=== PATIENT | male | born 1940 | race Caucasian/White ===

== ENCOUNTER 2016-04-22 05:16 | Inpatient (IN) | payer OTHER, MEDICARE ==
[~2016-04-22] VITALS: Ht 185.4 cm; Wt 106.1 kg
[2016-04-22] VITALS (10 sets, daily range): BP systolic 95–124; BP diastolic 59–67; PULSE 51–62; RESP 16–20; TEMP 98.1–98.6; O2SAT 93–98
[~2016-04-22 05:16] MED LIST: ASPI325T PO; ATOR80TA41 PO; LEXA20TA PO; MELO15TA2 PO; METO50CR PO; NEXI40CA PO; RIVA20 PO; ZOLP10TA3 PO
[2016-04-22] MEDS ORDERED: NS 1000P @30 MLS/HR (KVO) IV SCH (06:00)
[2016-04-22 06:01] LABS: AUTOMATED NEUTROPHIL # 6.1 TH/MM3 (1.8-7.7); BASOPHIL % 0.2 % (0.0-2.0); EOSINOPHIL # 0.1 TH/MM3 (0-0.4); EOSINOPHIL % 0.7 % (0.0-4.0); HEMATOCRIT 40.2 % (39.0-51.0); HEMO FLAGS DIFF FINAL; LYMPH % 18.4 % (9.0-44.0); LYMPHOCYTE # 1.5 TH/MM3 (1.0-4.8); MEAN CORPUSCULAR HEMOGLOBIN 31.5 PG (27.0-34.0); MEAN CORPUSCULAR HGB CONC 34.6 % (32.0-36.0); MONO % 8.3 % (0.0-8.0); NEUT % 72.4 % (16.0-70.0); PLATELET COUNT 172 TH/MM3 (150-450); RED BLOOD COUNT 4.42 MIL/MM3 (4.50-5.90); RED CELL DISTRIBUTION WIDTH 13.8 % (11.6-17.2); WHITE BLOOD COUNT 8.4 TH/MM3 (4.0-11.0)
[2016-04-22] MEDS ORDERED: ALLE12TA2 PO (06:09)
[2016-04-22] MEDS ORDERED: DILT-48 PO (06:09)
[2016-04-22] MEDS ORDERED: APIX5TAB PO (06:09)
[2016-04-22] MEDS ORDERED: NITR0.4S SL (06:09)
[2016-04-22 06:12] LABS: APTT (PATIENT) 27.4 SEC (24.3-30.1); PROTHROMBIN TIME - PATIENT 10.9 SEC (9.8-11.6)
[2016-04-22 06:15] LABS: BICARBONATE 28.1 MEQ/L (21.0-32.0); POTASSIUM 3.8 MEQ/L (3.5-5.1)
[2016-04-22] MEDS ORDERED: HEPARIN-NS/PF INJ 500 ML ONE (07:13)
[2016-04-22] MEDS ORDERED: MIDAZOLAM HCL 2 MG/2 ML VIAL ONE (07:13)
--- NOTE | 2016-04-22 08:02 | MH ---
cc: RASHAUN GROVE M.D. DATE OF ADMISSION: 04/22/2016 ADMITTING DIAGNOSES 1. Refractory angina pectoris with abnormal nuclear stress test and known coronary artery disease. 2. History of paroxysmal atrial fibrillation. 3. Obesity. 4. Hypertension. 5. Hyperlipidemia. CHIEF COMPLAINT Ongoing chest pressure. HISTORY OF PRESENT ILLNESS Seth Finley is a 75-year-old man who has been a patient of mine for a number of years. He has known coronary artery disease. He had a cardiac catheterization at 2009. At that time he had a 25% bifurcation stenosis of the mid-LAD involving the diagonal branch. The circumflex artery at 35% ostial disease. The left main artery was irregular. The right coronary artery has 10-20% proximal disease and irregularities of the posterolateral branch. He has been managed medically. He has been having chest pressure. He had a nuclear stress test on March 04, 2016. This showed a small to moderate-sized defect involving the mid to basal lateral wall with mild ischemia in that territory. Ejection fraction was 50-55% and was considered be a low-risk finding. His symptoms had been somewhat atypical. However, he has now sent me two letters to the office. He is having prolonged episode of tightness in his chest; it starts in the morning and is worse as the day progresses. He has discomfort underneath the left arm. The discomfort is ongoing despite dual antianginal therapy and, because of prolonged symptoms, a cardiac catheterization was advised. MEDICATIONS 1. Cardizem CD 120 mg daily. 2. Imdur 30 mg daily. 3. Eliquis 5 mg p.o. b.i.d., last dose Wednesday morning. 4. nitroglycerin p.r.n. 5. Crestor 5 mg daily. ALLERGIES None. PAST MEDICAL HISTORY 1. Coronary artery disease. 2. Sleep apnea. 3. Kidney stones. 4. Degenerative arthritis. 5. Gastroesophageal reflux disease. 6. Hypertension. 7. Lacunar CVAs involving the basal ganglia. 8. History of mitral valve prolapse. 9. Obesity. 10. Paroxysmal atrial fibrillation status post ablations in 2011 and 2014, on chronic anticoagulation. PAST SURGICAL HISTORY 1. Right total hip replacement. 2. C-spine fusion. 3. His previous cath. SOCIAL HISTORY He smoked from age 16 to age 40. He is . He has quite a lot of family. Does not drink more than socially. FAMILY HISTORY Positive for Alzheimer's in grandparents and diabetes in er grandparents. PHYSICAL EXAMINATION GENERAL: physical exam shows an obese well-developed, well-nourished white male in no acute distress. VITAL SIGNS: Charted. HEENT: Exam unremarkable. NECK: No JVD, no bruits. CHEST: Clear to auscultation. CARDIAC EXAM: S1-S2, regular rate and rhythm. No murmurs or gallops. ABDOMEN: Soft, nontender. EXTREMITIES: No clubbing, cyanosis or edema. NEUROLOGIC: Alert and oriented. IMPRESSION Ongoing chest discomfort in a Class III anginal pattern with mildly abnormal nuclear stress test with ongoing symptoms despite until antianginal therapy. He is under a great deal of stress from taking care of his with dementia. I am concerned because he has had pretty severe hyperlipidemia and has trouble tolerating statin therapy and has only been on statin therapy intermittently and even at that at low-dose. The concern is whether he has had progression of his disease, whether he is critical. The nuclear stress test suggests it could be a circumflex defect and he had 35% ostial disease on his previous cath. PLAN The plan is to perform a diagnostic cardiac cath with possible revascularization if indicated. Further therapy to be determined. Informed consent has been obtained. MD SHAVONNE Negron/CHASITY 7:37 AM 7:46 AM
[2016-04-22] MEDS ORDERED: SODIUM CHLOR 0.9% 1000 ML INJ 1,000 ML IV SCH (08:19)
[2016-04-22] MEDS ORDERED: SODIUM CHLORIDE 0.9% FLUSH 5 ML FLUSH IVF PRN (08:30)
[2016-04-22] MEDS ORDERED: ALUMINUM/MAGNESIUM/SIMETH 30 ML CUP PO PRN (08:30)
[2016-04-22] MEDS ORDERED: oxyCODONE/ACETAMINOPHEN 5 MG/325 MG TAB PO PRN (08:30)
[2016-04-22] MEDS ORDERED: MISC INFORMATION XX ONE (08:30)
[2016-04-22] MEDS ORDERED: ONDANSETRON HCL 4 MG/2 ML VIAL IV PRN (08:30)
--- NOTE | 2016-04-22 08:56 | MA ---
cc: RASHAUN GROVE M.D. DATE: 04/22/2016 PROCEDURE PERFORMED Left heart catheterization, left ventriculography, coronary angiography. DESCRIPTION OF PROCEDURE The patient was brought to the cardiac process laboratory specialist in a fasting state. The right groin was prepped and draped in sterile fashion. Using 1% lidocaine for local anesthesia a 6-1/2 Latvian sheath was inserted in the right femoral artery. Left ventricular pressure was then recorded using a pigtail catheter followed by left ventriculography and then a pullback. Coronary angiography was then performed using a left 5 Alejandra for the left coronary artery and a 3DRC for the right coronary artery. The sheath is being pulled manually. There were no complications. Dr. Geeta Georges has visited the process laboratory specialist and has him scheduled for bypass surgery tomorrow. FINDINGS 1. Hemodynamics. Left ventricular pressure was 100 systolic with an end-diastolic pressure of 14, aortic pressure was 100/60. There was no gradient during pullback from left ventricle to the aorta. 2. Left ventriculography. Left ventriculography shows normal left ventricular function. Estimated ejection fraction is 60%. There is outpouching of the mitral valve suggestive of prolapse but no mitral regurgitation seen. There is scattered coronary artery calcification. 3. Coronary angiography. The left main coronary artery has a distal 50% stenosis involving the ostium of the LAD and circumflex vessel. The LAD has 50-60% ostial disease and somewhat sluggish flow. There is about 30% mid bifurcation stenosis involving the diagonal branch. LAD is large-caliber easily graftable vessel. The circumflex artery has a 90% ostial stenosis. The major obtuse marginal branch has about 25% ostial disease. The distal circumflex vessel is small. The right coronary artery is a large dominant vessel and has diffuse irregularities. In the midportion of the vessel there is an eccentric 30% stenosis, distally there is 20% stenoses. It does give off a significant posterolateral branch and a posterior descending artery branch that courses out to the apex. CONCLUSION 1. The patient's blood pressure is about 100 with a pulse rate in the mid 40s. EDP is normal. 2. Preserved left ventricular systolic function. 3. Critical coronary artery disease involving the left main, ostial LAD and ostial circumflex lesion with only mild disease in the right coronary artery. RECOMMENDATIONS Coronary artery bypass grafting to the LAD and circumflex vessels. This is tentatively scheduled for tomorrow. MD SHAVONNE Negron/MARGAUX /8:18 AM /8:47 AM
[2016-04-22] MEDS: ASPIRIN 81 MG CHEW TAB PO SCH (09:00)
[2016-04-22] MEDS ORDERED: CHLORHEXIDINE GLUCONATE 4% SOLN 120 ML BTL TOPICAL SCH (09:45)
[2016-04-22] MEDS ORDERED: ONDANSETRON HCL 4 MG/2 ML VIAL IVP PRN (09:45)
[2016-04-22] MEDS ORDERED: CEFAZOLIN INJ 500 MG in SODIUM CHLORIDE 0.9% IRR BTL 500 ML IRRIGATION SCH (09:45)
[2016-04-22] MEDS ORDERED: PAPAVERINE INJ 60 MG, NITROGLYCERIN INJ 100 MCG, DILTIAZEM INJ 100 MG in SODIUM CHLORID... IRRIGATION SCH (09:45)
[2016-04-22] MEDS ORDERED: NALOXONE HCL 0.4 MG/ML AMP IV PRN (09:45)
[2016-04-22] MEDS ORDERED: INSULIN REGULAR (IV INFUSION) 100 UNITS in SODIUM CHLORIDE 0.9% INJ 100 ML IV SCH (09:45)
[2016-04-22] MEDS ORDERED: SODIUM CHLORIDE 0.9% FLUSH 5 ML FLUSH IV FLUSH PRN (09:45)
[2016-04-22] MEDS ORDERED: SODIUM CHLORIDE 0.9% FLUSH 5 ML FLUSH FLUSH PRN (09:45)
[2016-04-22] MEDS ORDERED: ceFAZolin 2 GM PREMIX 50 ML IV SCH (09:45)
[2016-04-22] MEDS ORDERED: METOPROLOL TARTRATE 25 MG TAB PO SCH (09:45)
[2016-04-22] MEDS ORDERED: ACETAMINOPHEN 325 MG TAB PO PRN (09:45)
--- NOTE | 2016-04-22 10:14 | PD.CAR.PN ---
CVT Progress Note Subjective/Hospital Course: STS DATA DISCUSSED WITH PT RISK SCORES About the STS Risk Calculator Procedure: CAB Only Risk of Mortality: 2.048% Morbidity or Mortality: 17.135% Long Length of Stay: 8.165% Short Length of Stay: 29.355% Permanent Stroke: 1.518% Prolonged Ventilation: 11.612% DSW Infection: 0.415% Renal Failure: 3.878% Reoperation: 6.446% Objective: Vital Signs Date Time Temp Pulse Resp B/P Pulse Ox O2 Delivery O2 Flow Rate FiO2 04/22/16 09:09 Room Air 04/22/16 05:45 51 17 118/67 93 Labs: Laboratory Tests Test 04/22/16 05:45 White Blood Count 8.4 TH/MM3 (4.0-11.0) Red Blood Count 4.42 MIL/MM3 (4.50-5.90) Hemoglobin 13.9 GM/DL (13.0-17.0) Hematocrit 40.2 % (39.0-51.0) Mean Corpuscular Volume 91.0 FL (80.0-100.0) Mean Corpuscular Hemoglobin 31.5 PG (27.0-34.0) Mean Corpuscular Hemoglobin 34.6 % Concent (32.0-36.0) Red Cell Distribution Width 13.8 % (11.6-17.2) Platelet Count 172 TH/MM3 (150-450) Mean Platelet Volume 8.0 FL (7.0-11.0) Neutrophils (%) (Auto) 72.4 % (16.0-70.0) Lymphocytes (%) (Auto) 18.4 % (9.0-44.0) Monocytes (%) (Auto) 8.3 % (0.0-8.0) Eosinophils (%) (Auto) 0.7 % (0.0-4.0) Basophils (%) (Auto) 0.2 % (0.0-2.0) Neutrophils # (Auto) 6.1 TH/MM3 (1.8-7.7) Lymphocytes # (Auto) 1.5 TH/MM3 (1.0-4.8) Monocytes # (Auto) 0.7 TH/MM3 (0-0.9) Eosinophils # (Auto) 0.1 TH/MM3 (0-0.4) Basophils # (Auto) 0.0 TH/MM3 (0-0.2) CBC Comment DIFF FINAL Differential Comment Prothrombin Time 10.9 SEC (9.8-11.6) Prothromb Time International 1.0 RATIO Ratio Activated Partial 27.4 SEC Thromboplast Time (24.3-30.1) Sodium Level 142 MEQ/L (136-145) Potassium Level 3.8 MEQ/L (3.5-5.1) Chloride Level 107 MEQ/L (98-107) Carbon Dioxide Level 28.1 MEQ/L (21.0-32.0) Anion Gap 7 MEQ/L (5-15) Blood Urea Nitrogen 24 MG/DL (7-18) Creatinine 1.07 MG/DL (0.60-1.30) Estimat Glomerular Filtration 67 ML/MIN (>89) Rate Random Glucose 93 MG/DL (74-106) Calcium Level 8.8 MG/DL (8.5-10.1) Result Diagram: 04/22/16 0545 04/22/16 0545 Florecita Morris Apr 22, 2016 10:14
--- NOTE | 2016-04-22 11:21 | MH ---
cc: ZAINAB SMITH MD DATE OF ADMISSION: 04/22/2016 1940 HISTORY OF PRESENT ILLNESS A 75-year-old male patient of Dr. Rohit Avilez, Primary Care, Dr. Christian Rosales, Cardiology, with history of coronary artery disease. He underwent nuclear stress test March 04, 2016 and showed a small to moderate-sized defect involving the mid to basilar lateral wall with mild ischemia, EF of 50-55%, because he was having some chest pressure, however, he is having prolonged episodes of tightness in his chest, starts in the morning and is worse as the day progresses. Also, some discomfort underneath the left arm. Imdur was added and also a statin was added to his therapy. He has continued having discomfort despite anti-anginal therapy and because of prolonged symptoms cardiac cath was advised. He underwent cardiac cath today by Dr. Rosales showing a 50% left main, proximal LAD 60%, mid distal LAD 30%, diagonal 30%, the circ had 90%, the RCA had 35%. We were consulted to evaluate for coronary artery bypass grafting to the LAD and the circumflex. PAST MEDICAL HISTORY 1. Coronary artery disease with recent refractory angina pectoris. 2. History of paroxysmal atrial fibrillation. 3. Obesity. 4. Hypertension. 5. Hyperlipidemia. 6. Obstructive sleep apnea. He uses a C-PAP machine at home. 7. Degenerative arthritis. 8. Gastroesophageal reflux disease. 9. Per Dr. Rosales's note he had history of lacunar CVAs involving the basal ganglia however, the patient denies having this. 10. Obesity. PAST SURGICAL HISTORY 1. Two ablations in the past. 2. Right total hip replacement. 3. C-spine fusion. ALLERGIES No known allergies. MEDICATION Home meds include: 1. Cardizem CD 120 daily. 2. Imdur 30 daily. 3. Eliquis 5 p.o. b.i.d. last dose was on Wednesday. 4. Nitro p.r.n. 5. Crestor 5 mg. FAMILY HISTORY No history of premature cardiac disease, both parents . SOCIAL HISTORY The patient is , two children. Retired from education. History of 24-year of heavy tobacco, quit at age 40. States he smoked up to five packs per day. No alcohol. REVIEW OF SYSTEMS GENERAL: No night sweats, fever, heat and cold intolerance. SKIN: No psoriasis, itching or hives. HEENT: No blurred vision, hearing loss. RESPIRATORY: Mild shortness of breath. CARDIOVASCULAR: As above in HPI. GASTROINTESTINAL: No diarrhea, vomiting. GENITOURINARY: No burning, frequency, urgency. COMMUNITY PLANNING TECHNICIAN: The patient denies having history of TIA or CVA, however is documented in his record from Dr. Rosales. ENDOCRINOLOGY: No history of diabetes and/or hypothyroidism. PHYSICAL EXAMINATION VITAL SIGNS: Blood pressure 118/60, heart rate 50, respiratory rate 16, O2 sat 93-94 on room air. GENERAL: Patient is awake, alert, in no acute distress. HEENT: Head is normocephalic, atraumatic. Pupils equal and reactive. Oral mucosa pink, moist. NECK: Supple. No JVD. CARDIAC: Heart sounds S1-S2, regular rate and rhythm. No rubs, murmurs, gallops. LUNGS: Clear to auscultation. No wheezes, rales or rhonchi. ABDOMEN: Abdomen is soft, nontender. No masses or organomegaly. EXTREMITIES: No cyanosis, clubbing or edema. He has good distal pulses. LABORATORY FINDINGS Shows hemoglobin 13, hematocrit of 40, white cell count 8.4, platelet count 172. Sodium 142, potassium 3.8, BUN 24, creatinine 1.07, INR 1.0. Further radiological exams are pending. EKG Atrial fibrillation rate-controlled. IMPRESSION This is a 75-year-old patient with two-vessel coronary disease to the LAD and the circ. Procedures, alternatives and risks have been discussed with the patient. Plan is for surgery in the a.m. He has stopped his Eliquis on Wednesday. Will check a platelet inhibition testing. Otherwise, he will be scheduled for tomorrow. Further testing pending. He will have complete preop education and will continue with his current medications. Dictated by: PATTI Villanueva Zainab ALICIA /10:18 AM 11:09 AM
[2016-04-22] MEDS ORDERED: IOHEXOL 350 MG/ML 100 ML BTL (for Cath Lab) OTHER ONE (11:37)
--- NOTE | 2016-04-22 11:41 | RADRPT ---
EXAM DATE/TIME: 04/22/2016 10:03 [facility] COMPARISON: No previous studies available for comparison. INDICATIONS : PreOp cardiac surgery. MEDICAL HISTORY : Hypercholesterolemia. Hypertension. Gastroesophageal reflux disease. Atrial fib rillation. Coronary artery disease. Arthritis. SURGICAL HISTORY : Cardiac ablation. Right knee arthroscopy. Neck surgery. ENCOUNTER: Initial ACUITY: 1 day PAIN SCORE: 0/10 LOCATION: Bilateral neck PEAK SYSTOLIC VELOCITIES (cm/sec): ICA/CCA RATIO: Right: 1.0 Left: 1.2 ICA: Right: 81 Left: 90 CCA: Right: 79 Left: 75 ECA: Right: 127 Left: 146 VERTEBRAL: Right: 43 antegrade Left: 51 antegrade Elevated flow velocities and ICA/CCA ratios have been found to correlate with increased degrees of vessel stenosis, calculated as percentage of diameter relative to a normal segment of distal ICA/CCA FINDINGS: RIGHT CAROTID: No significant stenosis is visualized. The waveforms are within normal limits. Ca lcified atherosclerotic plaque is noted within the right carotid bulb and proximal internal carotid a rtery. LEFT CAROTID: No significant stenosis is visualized within the left internal carotid artery. Ther e is elevated peak systolic velocity within the left proximal common carotid artery in the 50-69% george nosis range. The waveforms are within normal limits. Calcified atherosclerotic plaque is noted withi n the left proximal external carotid artery. VERTEBRAL ARTERIES: Antegrade flow is seen in both vertebral arteries. MISCELLANEOUS: None. CONCLUSION: 1. No significant stenosis within the internal carotid arteries. 2. 50-69% stenosis of the left proximal common carotid artery. Gus Mcgee MD on April 22, 2016 at 11:37 Board Certified Radiologist. This report was verified electronically.
--- NOTE | 2016-04-22 11:42 | RADRPT ---
EXAM DATE/TIME: 04/22/2016 10:23 [facility] COMPARISON: No previous studies available for comparison. INDICATIONS : PreOp cardiac surgery. MEDICAL HISTORY : Hypercholesterolemia. Hypertension. Gastroesophageal reflux disease. Atrial fibrillation. Coronary ar owen disease. Arthritis. SURGICAL HISTORY : Cardiac ablation. Right knee arthroscopy. Neck surgery. ENCOUNTER: Initial ACUITY: 1 day PAIN SCORE: 0/10 LOCATION: Bilateral legs. TECHNIQUE: Venous ultrasound of the left and right leg was performed from the inguinal ligament to the proximal calf. Real-time, color Doppler and spectral tracing, compression and augmentation techniques were us ed. FINDINGS: RIGHT LEG: There is normal compressibility of the deep venous system from the inguinal region to the proximal ca lf. No echogenic clot is seen in the lumen of the common femoral, femoral, popliteal, and posterior tibial veins. There is a normal response of the venous system to proximal and distal augmentation an d respiration. LEFT LEG: There is normal compressibility of the deep venous system from the inguinal region to the proximal ca lf. No echogenic clot is seen in the lumen of the common femoral, femoral, popliteal, and posterior tibial veins. There is a normal response of the venous system to proximal and distal augmentation an d respiration. CONCLUSION: No evidence of deep venous thrombosis within the lower extremities. Gus Mcgee MD on April 22, 2016 at 11:40 Board Certified Radiologist. This report was verified electronically.
[2016-04-22] MEDS: NITROGLYCERIN 2% OINT 1 GM PACKET TOPICAL SCH ×3 (12:00→17:36)
[2016-04-22] MEDS: ALPRAZolam 1 MG TAB PO SCH ×3 (12:00→20:57)
[2016-04-22 12:34] LABS: P2Y12 REACTION UNITS (PRU) 203 PRU (194-418)
--- NOTE | 2016-04-22 13:05 | RADRPT ---
EXAM DATE/TIME: 04/22/2016 10:38 [facility] COMPARISON: No previous studies available for comparison. INDICATIONS : PreOp cardiac surgery. MEDICAL HISTORY : Hypercholesterolemia. Gastroesophageal reflux disease. Hypertension. Atrial fi brillation. Coronary artery disease. Arthritis. SURGICAL HISTORY : Cardiac ablation. Right knee arthroscopy. Neck surgery. ENCOUNTER: Initial ACUITY: 1 day PAIN SCORE: 0/10 LOCATION: Bilateral legs. GREATER SAPHENOUS VEIN THIGH: PROXIMAL: Right 6 mm Left 5 mm MID: Right 3 mm Left 3 mm DISTAL: Right 3 mm Left 2 mm CALF: PROXIMAL: Right 2 mm Left 1 mm MID: Right 3 mm Left 1 mm DISTAL: Right 4 mm Left 3 mm FINDINGS: The venous system of the lower extremities are patent by color Doppler imaging. Measurements of the leg veins (in mm) are listed above. CONCLUSION: Venous mapping as described above. Phill Dunne MD FACR on April 22, 2016 at 13:03 Board Certified Radiologist. This report was verified electronically.
[2016-04-22] MEDS ORDERED: ZOLPIDEM TARTRATE 5 MG TAB PO PRN (15:15)
[2016-04-22 15:53] LABS: BLOOD, URINE NEG (NEG); GLUCOSE,URINE NEG (NEG); KETONE, URINE NEG (NEG); NITRITE,URINE NEG (NEG); PH, URINE 6.5 (5.0-8.5); SQUAMOUS EPITHELIAL CELL URINE <1 /hpf (0-5); URINE COLOR YELLOW (YELLW/STRAW)
[2016-04-22 15:54] LABS: COMMENT (UR) CULT NOT INDICATED; CULTURE IF INDICATED CULT NOT INDICATED
[2016-04-22 17:48] LABS: HEMOGLOBIN A1b 1.6 %; HEMOGLOBIN Ao 85.9 %; HEMOGLOBIN P3 3.8 %
--- NOTE | 2016-04-22 18:44 | EKG ---
Date Performed: 04/22/2016 Time Performed: 05:59:08 PTAGE: 75 years EKG: Sinus bradycardia with PAC noted Abnormal ECG PREVIOUS TRACING : 04/08/2012 05.51 Compared to the previous tracing, rate has decreased DOCTOR: Sergio Medina Interpretating Date/Time 04/22/2016 18:42:36
[2016-04-22] MEDS: DOCUSATE SODIUM 100 MG CAP PO SCH (20:57)
[2016-04-22] MEDS: SODIUM CHLORIDE 0.9% FLUSH 5 ML FLUSH IVF SCH (20:57)
[2016-04-22] MEDS ORDERED: SODIUM CHLORIDE 0.9% FLUSH 5 ML FLUSH IV FLUSH SCH (21:00)
[2016-04-22] MEDS ORDERED: SODIUM CHLORIDE 0.9% FLUSH 5 ML FLUSH FLUSH SCH (21:00)
--- NOTE | 2016-04-22 21:03 | RADRPT ---
EXAM DATE/TIME: 04/22/2016 20:11 [facility] COMPARISON: No previous studies available for comparison. INDICATIONS : Pre-op CABG chest xray. Evaluate for pneumonia, pneumothorax, or communicable diseases. MEDICAL HISTORY : None. SURGICAL HISTORY : Cardiac ablations. ENCOUNTER: Initial ACUITY: 1 day PAIN SCORE: 0/10 LOCATION: chest FINDINGS: PA and lateral views of the chest demonstrate the lungs to be symmetrically aerated without evidence of mass, infiltrate or effusion. The cardiomediastinal contours are unremarkable. Osseous structure s are intact. CONCLUSION: 1. No acute findings. Calcified left hilar lymph nodes. Sid Dodge MD on April 22, 2016 at 21:01 Board Certified Radiologist. This report was verified electronically.
[2016-04-23] VITALS (20 sets, daily range): BP systolic 102–123; BP diastolic 52–73; PULSE 51–94; RESP 12–20; TEMP 97.5–98.2; O2SAT 94–99
[2016-04-23] MEDS: ALPRAZolam 1 MG TAB PO SCH ×3 (03:57→20:15)
[2016-04-23] MEDS: NITROGLYCERIN 2% OINT 1 GM PACKET TOPICAL SCH ×2 (06:20)
[2016-04-23] MEDS ORDERED: HEPARIN SODIUM - SQ 10,000 UNITS/ML VIAL ONE (07:04)
[2016-04-23] MEDS ORDERED: HEPARIN SODIUM - IV 10,000 UNITS/10 ML VIAL ONE (07:04)
[2016-04-23] MEDS ORDERED: VANCOMYCIN HCL 1000 MG VIAL ONE (07:06)
[2016-04-23] MEDS ORDERED: POTASSIUM CHLORIDE 20 MEQ/10 ML VIAL ONE (08:53)
[2016-04-23] MEDS ORDERED: ATORVASTATIN 10 MG TAB PO SCH (09:00)
[2016-04-23] MEDS ORDERED: PROTAMINE SULFATE 250 MG/25 ML VIAL IV ONE ×2 (10:41→11:12)
[2016-04-23] MEDS ORDERED: AMINOCAPROIC ACID INJ 250 MG/ML 20 ML VIAL IV ONE (11:10)
[2016-04-23] MEDS ORDERED: PROPOFOL 1000 MG/100 ML INJ 100 ML IV ONE (11:10)
[2016-04-23] MEDS ORDERED: CALCIUM CHLORIDE 10% SOLN 1 GRAM/10 ML SYR IV ONE (11:10)
[2016-04-23] MEDS ORDERED: HEPARIN SODIUM - SQ 10,000 UNITS/ML VIAL SQ ONE (11:11)
[2016-04-23] MEDS ORDERED: MAGNESIUM SULFATE 1000 MG/2 ML VIAL (PED) IV ONE (11:11)
[2016-04-23] MEDS ORDERED: LIDOCAINE HCL 1% 30 ML VIAL OTHER ONE (11:11)
[2016-04-23] MEDS ORDERED: NITROGLYCERIN-DEXTROSE INJ 250 ML IV ONE (11:12)
[2016-04-23] MEDS ORDERED: PHENYLEPHRINE HCL 10 MG/ML VIAL IV ONE (11:12)
[2016-04-23] MEDS ORDERED: VECURONIUM BROMIDE 10 MG VIAL IV ONE (11:13)
[2016-04-23] MEDS ORDERED: DEXMEDETOMIDINE INJ 50 ML IV ONE (11:13)
[2016-04-23] MEDS ORDERED: DOBUTamine PREMIX DRIP 250 ML IV SCH (12:43)
[2016-04-23] MEDS ORDERED: LACTATED RINGER'S 1000 ML INJ 500 ML IV PRN (12:43)
[2016-04-23] MEDS ORDERED: ACETAMINOPHEN/HYDROcodone 325 MG/5 MG TAB PO PRN (12:45)
[2016-04-23] MEDS ORDERED: DOPamine INJ PREMIX 500 ML IV SCH (12:45)
[2016-04-23] MEDS ORDERED: CALCIUM CHLORIDE 10% 1 GRAM/10 ML VIAL IV PRN (12:45)
[2016-04-23] MEDS ORDERED: ONDANSETRON HCL 4 MG/2 ML VIAL IV PUSH PRN (12:45)
[2016-04-23] MEDS ORDERED: PHENYLEPHRINE INJ 40 MG in DEXTROSE 5% IN WATE 500 ML INJ 496 ML IV SCH ×2 (12:45)
[2016-04-23] MEDS ORDERED: hydrALAZINE HCL 20 MG/ML VIAL IV PRN (12:45)
[2016-04-23] MEDS ORDERED: POTASSIUM CHLORIDE 20 MEQ CONTROLLED RELEASE TAB PO PRN ×2 (12:45)
[2016-04-23] MEDS ORDERED: SODIUM CHLORIDE 0.9% FLUSH 5 ML FLUSH IV FLUSH PRN (12:45)
[2016-04-23] MEDS ORDERED: DEXTROSE 50% IN WATER 50 ML VIAL(D50) IV PUSH PRN (12:45)
[2016-04-23] MEDS ORDERED: INSULIN REGULAR (IV INFUSION) 100 UNITS in SODIUM CHLORIDE 0.9% INJ 99 ML IV SCH (12:45)
[2016-04-23] MEDS ORDERED: MEPERIDINE HCL 25 MG/ML VIAL IV PRN (12:45)
[2016-04-23] MEDS ORDERED: EPINEPHrine (1:1000) INJ 4 MG in DEXTROSE 5% IN WATER INJ 246 ML IV SCH ×2 (12:45)
[2016-04-23] MEDS ORDERED: MORPHINE SULFATE 4 MG/ML INJ IV PRN (12:45)
[2016-04-23] MEDS ORDERED: CALCIUM CHLORIDE INJ 1 GM in SODIUM CHLORIDE 0.9% INJ 100 ML IV PRN (12:45)
[2016-04-23] MEDS ORDERED: NITROGLYCERIN-DEXTROSE INJ 250 ML IV SCH (12:45)
[2016-04-23] MEDS ORDERED: ACETAMINOPHEN 325 MG TAB PO PRN (12:45)
[2016-04-23] MEDS ORDERED: Post-op Orders (for Pharmacy) MISC OTHER ONE (12:45)
[2016-04-23] MEDS ORDERED: POTASSIUM CHLOR 20 MEQ PREMIX 100 ML IV PRN ×2 (12:45)
[2016-04-23] MEDS ORDERED: ALBUMIN HUMAN 5% 12.5 GM/250 ML BOTTLE IV PRN (12:45)
[2016-04-23] MEDS ORDERED: ACETAMINOPHEN 650 MG SUPP RECTAL PRN (12:45)
[2016-04-23] MEDS ORDERED: CLEVIDIPINE INJ 50 ML IV SCH (12:45)
[2016-04-23] MEDS ORDERED: MAGNESIUM SULFATE INJ 2 GM in SODIUM CHLORIDE 0.9% INJ 100 ML IV PRN ×4 (12:45)
[2016-04-23] MEDS ORDERED: DEXMEDETOMIDINE INJ 50 ML IV SCH (12:45)
[2016-04-23] MEDS ORDERED: METOPROLOL TARTRATE 5 MG/5 ML VIAL IV PUSH PRN (12:45)
--- NOTE | 2016-04-23 12:52 | PD.OP ---
cc: Geeta Georges MD; Christian Rosales MD Operative Report Date of Surgery: Apr 23, 2016 Preoperative Diagnosis: Postoperative Diagnosis: Procedure: 1. Urgent Off-pump Coronary Artery Bypass Grafting x 2 with left internal mammary artery (VEGA) to left anterior descending (LAD), reverse saphenous vein graft to the OM1 2. Right Leg Endoscopic Vein Orcas 3. Left Atrial Appendage Excision 4. Intraoperative Vein Mapping. . Surgeon: Geeta Georges Selvage Machine Operator(s): Lee Nichols Operation and Findings: PREPROCEDURE DIAGNOSES 1. Left Main Coronary Artery Disease. 2. Unstable Angina 3. H/O Atrial Fibrillation s/p ablation POSTPROCEDURE DIAGNOSES Same SURGICAL PROCEDURE 1. Urgent Off-pump Coronary Artery Bypass Grafting x 2 with left internal mammary artery (VEGA) to left anterior descending (LAD), reverse saphenous vein graft to the OM1 2. Right Leg Endoscopic Vein Orcas 3. Left Atrial Appendage Excision 4. Intraoperative Vein Mapping. SURGEON Geeta Georges MD ARBORICULTURE INSTRUCTOR SARI Wilson ANESTHESIA General endotracheal . SECURITY ADVISOR NELLY Kirk MD PREPARATION Chlora[employer]. COUNTS Needle, sponge, and instrument counts were correct. DRAINS Two 32-[place] mediastinal tubes. COMPLICATIONS None. INDICATIONS FOR PROCEDURE The patient is a 75-year-old presenting with chest pain. Patient was noted to have left main coronary artery disease with associated critical ostial LCX stenosis. The patient is being brought to the operating room for surgical revascularization therapy. PROCEDURE Patient was brought to the operating room and placed supine on the OR table. Following the induction of adequate general endotracheal anesthesia and placement of appropriate monitoring devices, intraoperative vein mapping was performed which revealed suitable-caliber conduit in bilateral lower extremities. The patient was then prepped and draped in standard sterile fashion. Next, 2500 units of intravenous heparin was given. The right greater saphenous vein was harvested endoscopically. This appeared to be a useable- caliber conduit. Simultaneously, a median sternotomy was performed and the left internal mammary artery dissected free off the posterior sternal table. The patient was systemically heparinized and anticoagulation monitored by serial ACT measurements. The internal mammary artery had good pulsatile flow in it and was a good-caliber conduit. The pericardium was then divided in the midline , the cradle created and targets analyzed. At this point, all anastomoses were performed in a beating-heart fashion using the [employer] stabilizing system. The left internal mammary artery was anastomosed to the mid LAD in an end-to-side fashion using 7-0 Prolene. Segment of saphenous vein graft was then anastomosed to the OM1 in an end-to-side fashion using a running 7-0 Prolene. The proximal anastomosis was then constructed to the ascending aorta in a running manner using 6-0 Prolene. All anastomotic sites were inspected and appeared to be hemostatic and patent. The ledft atrial appendage was excised using a HITESH stapler. Protamine solution was given. Strict hemostasis was assured. The closure was undertaken. 2 chest tubes were placed. The pericardium was reapproximated in the midline. The sternum was approximated using sternal wires. The muscular and fascial layer were then closed in 3 layers. The endoscopic vein harvest site was closed in 2 layers. The patient tolerated the procedure well and was transferred to CVICU in stable condition. Geeta Georges MD Apr 23, 2016 12:52
[2016-04-23] MEDS ORDERED: fentaNYL CITRATE 1000 MCG/20 ML VIAL ONE (13:32)
[2016-04-23] MEDS ORDERED: MIDAZOLAM HCL 5 MG/5 ML VIAL ONE (13:32)
[2016-04-23] MEDS: ACETAMINOPHEN 1000 MG/100 ML VIAL IV SCH ×2 (14:26→18:20)
[2016-04-23] MEDS: POTASSIUM CHLOR 20 MEQ PREMIX 100 ML IV PRN ×3 (14:26→18:12)
[2016-04-23] MEDS: KETOROLAC TROMETHAMINE 30 MG/ML (IVP) VIAL IV PUSH PRN ×2 (14:32→20:14)
--- NOTE | 2016-04-23 14:34 | RADRPT ---
EXAM DATE/TIME: 04/23/2016 13:33 [facility] COMPARISON: CHEST SINGLE AP, March 18, 2012, 12:34. INDICATIONS: Post CABG. MEDICAL HISTORY: None. SURGICAL HISTORY: None. ENCOUNTER: Initial ACUITY: 1 day PAIN SCORE: 0/10 LOCATION: Bilateral chest FINDINGS: An endotracheal tube has its tip 4 cm above the ana cristina. The nasogastric tube has its tip across the stomach. Mediastinal drain and left chest tube are in good positions. There is no pneumothorax. A right internal jugular central line has its tip in the superior vena cava. Median sternotomy wires a re noted status post cardiac surgery. The heart is stable. Granulomatous calcifications are noted w ithin the left hilum and are stable. Atelectasis is noted within the left mid lung field. The right lung is clear. Hardware is noted within the cervical spine. CONCLUSION: 1. Multiple tubes and lines are in good positions. 2. No pneumothorax. 3. Atelectasis within the left mid lung field. 4. Mild cardiomegaly. 5. Granulomatous changes in the left hilum. Gus Mcgee MD on April 23, 2016 at 14:27 Board Certified Radiologist. This report was verified electronically.
[2016-04-23] MEDS ORDERED: RESP: RACEPINEPHRINE 2.25% 0.5 ML NEB NEB PRN (16:00)
[2016-04-23] MEDS ORDERED: RESP: ALBUTEROL 2.5 MG/IPRATROPIUM 0.5 MG NEB (PRN) NEB (16:00)
[2016-04-23] MEDS: RESP: ALBUTEROL 2.5 MG/IPRATROPIUM 0.5 MG NEB (SCH) NEB ×2 (16:06→21:18)
[2016-04-23] MEDS: ACETAMINOPHEN/HYDROcodone 325 MG/5 MG TAB PO PRN ×2 (16:08→17:30)
[2016-04-23] MEDS: ceFAZolin 2 GM PREMIX 50 ML IV SCH (16:30)
[2016-04-23] MEDS: DOCUSATE SODIUM 100 MG CAP PO SCH (20:14)
[2016-04-23] MEDS: AMIODARONE 200 MG TAB PO SCH ×2 (20:15→21:00)
[2016-04-23] MEDS: SODIUM CHLORIDE 0.9% FLUSH 5 ML FLUSH IVF SCH (20:16)
[2016-04-23] MEDS ORDERED: ISOS30TA3 PO (20:47)
[2016-04-23] MEDS ORDERED: ROSU1TAB4 PO (20:47)
[2016-04-23] MEDS ORDERED: SODIUM CHLORIDE 0.9% FLUSH 5 ML FLUSH IV FLUSH SCH (21:00)
[2016-04-23] MEDS ORDERED: CLON1TAB PO (21:29)
[2016-04-23] MEDS ORDERED: DILTIAZEM-CD 120 MG CAP ER PO ONE ×2 (23:00→23:45)
[2016-04-23] MEDS ORDERED: PILL SPLITTER OTHER PRN (23:00)
[2016-04-23] MEDS: clonazePAM 1 MG TAB PO PRN (23:43)
[2016-04-24] VITALS (19 sets, daily range): BP systolic 90–114; BP diastolic 43–61; PULSE 65–95; RESP 18–22; TEMP 97.9–99.2; O2SAT 91–97
[2016-04-24] MEDS: ACETAMINOPHEN 1000 MG/100 ML VIAL IV SCH ×2 (01:00→07:00)
[2016-04-24] MEDS: ceFAZolin 2 GM PREMIX 50 ML IV SCH ×3 (02:50→18:10)
[2016-04-24] MEDS: ALPRAZolam 1 MG TAB PO SCH ×3 (04:00→08:00)
[2016-04-24 04:11] LABS: HEMATOCRIT 31.5 % (39.0-51.0); MEAN CELL VOLUME 91.1 FL (80.0-100.0); MEAN CORPUSCULAR HEMOGLOBIN 31.2 PG (27.0-34.0); MEAN CORPUSCULAR HGB CONC 34.2 % (32.0-36.0); PLATELET COUNT 143 TH/MM3 (150-450); RED BLOOD COUNT 3.45 MIL/MM3 (4.50-5.90); RED CELL DISTRIBUTION WIDTH 13.5 % (11.6-17.2); REVIEW FLAG FINAL; WHITE BLOOD COUNT 12.5 TH/MM3 (4.0-11.0)
[2016-04-24] MEDS: RESP: ALBUTEROL 2.5 MG/IPRATROPIUM 0.5 MG NEB (SCH) NEB ×3 (04:17→20:42)
--- NOTE | 2016-04-24 04:23 | RADRPT ---
EXAM DATE/TIME: 04/24/2016 03:14 [facility] COMPARISON: CHEST SINGLE AP, April 23, 2016, 13:33. INDICATIONS : Post CABG. MEDICAL HISTORY : None. SURGICAL HISTORY : CABG. Cardiac ablation. ENCOUNTER: Subsequent ACUITY: 3 days PAIN SCORE: Non-responsive. LOCATION: Bilateral chest FINDINGS: Mild consolidation and small effusion of the left lung base not significantly changed. Right lung rem ains reasonably clear. I don't see a pneumothorax on either side. Heart size stable, upper limits of normal. Patient has had median sternotomy. Mediastinal drain remains in place. Left chest tube remains in perez ce. Patient has been extubated. Nasogastric tube also out. There is unchanged right IJ central venous cat heter with tip in the superior vena cava. CONCLUSION: 1. No significant change left base consolidation and small effusion. 2. Endotracheal tube and nasogastric tube out. Mediastinal drain, left chest tube and right internal jugular central venous catheter are unchanged. 3. No pneumothorax seen. Carlos Abbott MD on April 24, 2016 at 4:19 Board Certified Radiologist. This report was verified electronically.
[2016-04-24 04:34] LABS: MAGNESIUM 2.1 MG/DL (1.5-2.5); POTASSIUM 3.9 MEQ/L (3.5-5.1)
[2016-04-24] MEDS: PANTOPRAZOLE SOD 40 MG DELAYED RELEASE TAB PO SCH (05:27)
[2016-04-24] MEDS ORDERED: DEXTROSE 50% IN WATER 50 ML VIAL(D50) IV PRN ×2 (07:45→09:00)
[2016-04-24] MEDS ORDERED: GLUCAGON 1 MG/ML VIAL IV PRN (07:45)
[2016-04-24] MEDS ORDERED: DILTIAZEM-CD 120 MG CAP ER PO SCH (09:00)
[2016-04-24] MEDS ORDERED: ASPIRIN 81 MG CHEW TAB PO SCH (09:00)
[2016-04-24] MEDS ORDERED: PATIENT OWN MEDICATION PO SCH (09:00)
[2016-04-24] MEDS ORDERED: ATORVASTATIN 10 MG TAB PO SCH (09:00)
[2016-04-24] MEDS: ASPIRIN 81 MG CHEW TAB PO SCH ×2 (09:00→09:53)
[2016-04-24] MEDS ORDERED: SOD PHOSPHATE/SOD BIPHOSPHATE (ADULT) ENEMA 133ML RECTAL PRN (09:00)
[2016-04-24] MEDS ORDERED: GLUCAGON 1 MG/ML VIAL OTHER PRN (09:00)
[2016-04-24] MEDS ORDERED: CLOPIDOGREL 75 MG TAB PO SCH (09:00)
[2016-04-24] MEDS ORDERED: BISACODYL 10 MG SUPP RECTAL PRN (09:00)
[2016-04-24] MEDS: MAGNESIUM HYDROXIDE SUSP 30 ML CUP PO SCH (09:52)
[2016-04-24] MEDS: METOPROLOL TARTRATE 25 MG TAB PO SCH ×2 (09:53→21:09)
[2016-04-24] MEDS: DOCUSATE SODIUM 100 MG CAP PO SCH ×2 (09:53→21:09)
[2016-04-24] MEDS: SODIUM CHLORIDE 0.9% FLUSH 5 ML FLUSH IVF SCH ×2 (09:54→21:09)
[2016-04-24] MEDS: MULTIVITAMINS/MINERALS THERAPEUTIC TAB PO SCH (09:54)
[2016-04-24] MEDS: KETOROLAC TROMETHAMINE 30 MG/ML (IVP) VIAL IV PUSH PRN ×2 (09:54→18:10)
[2016-04-24] MEDS: INSULIN ASPART SUPPLEMENTAL SCALE SQ SCH ×4 (09:59→21:16)
[2016-04-24] MEDS ORDERED: INSULIN ASPART SUPPLEMENTAL SCALE SQ SCH (10:00)
[2016-04-24] MEDS ORDERED: LORATADINE 10 MG TAB PO PRN (12:00)
--- NOTE | 2016-04-24 19:44 | EKG ---
Date Performed: 04/24/2016 Time Performed: 04:41:12 PTAGE: 75 years EKG: CONSIDER ACUTE ST ELEVATION [place] Sinus rhythm Diffuse ST elevation, most compatable with pericarditis. Other forms of injury are less likely with his diffuse ST change. When compared to previous tracing, the diffuse ST elevation is New. Clinical c orrelation is recommended. Pericarditis is the most likely diagnosis perhaps post bypass Surgery. Abn ormal ECG PREVIOUS TRACING : 04/22/2016 05.59 DOCTOR: Bryant Robles Interpretating Date/Time 04/24/2016 19:43:46
[2016-04-24] MEDS: SENNOSIDES 8.6 MG TAB PO SCH (21:09)
[2016-04-24] MEDS: clonazePAM 1 MG TAB PO PRN (21:16)
[2016-04-25] VITALS (26 sets, daily range): BP systolic 93–116; BP diastolic 52–60; PULSE 69–98; RESP 17–24; TEMP 97.3–100.4; O2SAT 93–98
[2016-04-25] MEDS: INSULIN ASPART SUPPLEMENTAL SCALE SQ SCH ×5 (02:00→21:34)
[2016-04-25] MEDS: ceFAZolin 2 GM PREMIX 50 ML IV SCH (02:29)
[2016-04-25 03:29] LABS: AUTOMATED NEUTROPHIL # 8.4 TH/MM3 (1.8-7.7); BASOPHIL % 0.2 % (0.0-2.0); EOSINOPHIL % 0.3 % (0.0-4.0); HEMATOCRIT 27.7 % (39.0-51.0); HEMO FLAGS DIFF FINAL; LYMPH % 11.8 % (9.0-44.0); LYMPHOCYTE # 1.3 TH/MM3 (1.0-4.8); MEAN CELL VOLUME 91.1 FL (80.0-100.0); MEAN CORPUSCULAR HEMOGLOBIN 31.8 PG (27.0-34.0); MEAN CORPUSCULAR HGB CONC 34.9 % (32.0-36.0); MONO % 11.7 % (0.0-8.0); PLATELET COUNT 141 TH/MM3 (150-450); RED BLOOD COUNT 3.04 MIL/MM3 (4.50-5.90); RED CELL DISTRIBUTION WIDTH 13.8 % (11.6-17.2); WHITE BLOOD COUNT 11.1 TH/MM3 (4.0-11.0)
[2016-04-25 03:49] LABS: BICARBONATE 27.8 MEQ/L (21.0-32.0); MAGNESIUM 2.3 MG/DL (1.5-2.5); POTASSIUM 4.1 MEQ/L (3.5-5.1)
[2016-04-25] MEDS: PANTOPRAZOLE SOD 40 MG DELAYED RELEASE TAB PO SCH ×2 (06:00→06:11)
[2016-04-25] MEDS: RESP: ALBUTEROL 2.5 MG/IPRATROPIUM 0.5 MG NEB (SCH) NEB ×3 (07:53→19:28)
[2016-04-25] MEDS: POLYETHYLENE GLYCOL 17 GM PKG PO SCH (08:11)
[2016-04-25] MEDS: MAGNESIUM HYDROXIDE SUSP 30 ML CUP PO SCH (08:11)
[2016-04-25] MEDS: METOPROLOL TARTRATE 25 MG TAB PO SCH ×2 (08:11→21:25)
[2016-04-25] MEDS: DOCUSATE SODIUM 100 MG CAP PO SCH ×2 (08:11→21:25)
[2016-04-25] MEDS: SODIUM CHLORIDE 0.9% FLUSH 5 ML FLUSH IVF SCH ×2 (08:11→21:27)
[2016-04-25] MEDS: MULTIVITAMINS/MINERALS THERAPEUTIC TAB PO SCH (08:12)
[2016-04-25] MEDS: ACETAMINOPHEN/HYDROcodone 325 MG/5 MG TAB PO PRN ×2 (08:12→14:05)
[2016-04-25] MEDS: ASPIRIN 81 MG CHEW TAB PO SCH (08:12)
--- NOTE | 2016-04-25 11:13 | PD.CAR.PN ---
CVT Progress Note CVT: POD #: 2 Subjective/Hospital Course: STS DATA DISCUSSED WITH PT RISK SCORES About the STS Risk Calculator Procedure: CAB Only Risk of Mortality: 2.048% Morbidity or Mortality: 17.135% Long Length of Stay: 8.165% Short Length of Stay: 29.355% Permanent Stroke: 1.518% Prolonged Ventilation: 11.612% DSW Infection: 0.415% Renal Failure: 3.878% Reoperation: 6.446% 04/25/16 s/p OPCAB x 2 doing well, no complaints Objective: Vital Signs Date Time Temp Pulse Resp B/P Pulse Ox O2 Delivery O2 Flow Rate FiO2 04/25/16 10:00 73 04/25/16 09:00 72 04/25/16 08:00 79 04/25/16 07:00 98.9 74 18 93/52 98 04/25/16 07:00 98 Room Air 04/25/16 07:00 73 04/25/16 06:01 71 04/25/16 05:00 69 04/25/16 04:01 71 04/25/16 03:15 97.9 96 19 101/58 96 04/25/16 03:00 70 04/25/16 02:00 74 04/25/16 01:00 77 04/25/16 00:00 79 04/24/16 23:15 98.1 79 18 114/60 92 04/24/16 23:01 80 04/24/16 22:00 85 04/24/16 21:00 95 04/24/16 20:48 93 21 04/24/16 20:30 91 Room Air 04/24/16 20:30 99.2 92 22 102/55 91 04/24/16 20:00 71 04/24/16 19:00 73 04/24/16 16:00 73 04/24/16 15:50 67 04/24/16 15:00 98.1 69 21 102/61 97 04/24/16 15:00 71 04/24/16 14:00 68 04/24/16 13:00 70 04/24/16 12:00 65 Labs: Laboratory Tests Test 04/25/16 04/25/16 03:13 03:20 White Blood Count 11.1 TH/MM3 (4.0-11.0) Red Blood Count 3.04 MIL/MM3 (4.50-5.90) Hemoglobin 9.7 GM/DL (13.0-17.0) Hematocrit 27.7 % (39.0-51.0) Mean Corpuscular Volume 91.1 FL (80.0-100.0) Mean Corpuscular Hemoglobin 31.8 PG (27.0-34.0) Mean Corpuscular Hemoglobin 34.9 % Concent (32.0-36.0) Red Cell Distribution Width 13.8 % (11.6-17.2) Platelet Count 141 TH/MM3 (150-450) Mean Platelet Volume 8.5 FL (7.0-11.0) Neutrophils (%) (Auto) 76.0 % (16.0-70.0) Lymphocytes (%) (Auto) 11.8 % (9.0-44.0) Monocytes (%) (Auto) 11.7 % (0.0-8.0) Eosinophils (%) (Auto) 0.3 % (0.0-4.0) Basophils (%) (Auto) 0.2 % (0.0-2.0) Neutrophils # (Auto) 8.4 TH/MM3 (1.8-7.7) Lymphocytes # (Auto) 1.3 TH/MM3 (1.0-4.8) Monocytes # (Auto) 1.3 TH/MM3 (0-0.9) Eosinophils # (Auto) 0.0 TH/MM3 (0-0.4) Basophils # (Auto) 0.0 TH/MM3 (0-0.2) CBC Comment DIFF FINAL Differential Comment Sodium Level 142 MEQ/L (136-145) Potassium Level 4.1 MEQ/L (3.5-5.1) Chloride Level 106 MEQ/L (98-107) Carbon Dioxide Level 27.8 MEQ/L (21.0-32.0) Anion Gap 8 MEQ/L (5-15) Blood Urea Nitrogen 19 MG/DL (7-18) Creatinine 1.13 MG/DL (0.60-1.30) Estimat Glomerular Filtration 63 ML/MIN (>89) Rate Random Glucose 114 MG/DL (74-106) Calcium Level 8.2 MG/DL (8.5-10.1) Magnesium Level 2.3 MG/DL (1.5-2.5) Result Diagram: 04/25/163 04/25/16 0320 Cardiovascular: RRR Telemetry: NSR Pulmonary: Decreased BS on left GI/: NABS, NT Incision: dry and intact CT: 20ml/12 hrs Plan: D/C chest tubes Encourage ambulation, up to chair Stim BM Possible D/C in AM or Wednesday Candie Nieves MD Apr 25, 2016 11:13
[2016-04-25] MEDS: clonazePAM 1 MG TAB PO PRN (21:25)
[2016-04-25] MEDS: SENNOSIDES 8.6 MG TAB PO SCH (21:25)
[2016-04-26] VITALS (25 sets, daily range): BP systolic 102–114; BP diastolic 53–64; PULSE 68–92; RESP 15–24; TEMP 97.9–100.5; O2SAT 92–98
[2016-04-26] MEDS: PANTOPRAZOLE SOD 40 MG DELAYED RELEASE TAB PO SCH (06:00)
[2016-04-26] MEDS: INSULIN ASPART SUPPLEMENTAL SCALE SQ SCH ×4 (07:00→20:25)
[2016-04-26] MEDS: RESP: ALBUTEROL 2.5 MG/IPRATROPIUM 0.5 MG NEB (SCH) NEB ×2 (07:16→13:51)
[2016-04-26] MEDS: MAGNESIUM HYDROXIDE SUSP 30 ML CUP PO SCH (08:34)
[2016-04-26] MEDS: POLYETHYLENE GLYCOL 17 GM PKG PO SCH (08:34)
[2016-04-26] MEDS: DOCUSATE SODIUM 100 MG CAP PO SCH ×2 (08:35→20:10)
[2016-04-26] MEDS: MULTIVITAMINS/MINERALS THERAPEUTIC TAB PO SCH (08:35)
[2016-04-26] MEDS: ASPIRIN 81 MG CHEW TAB PO SCH (08:35)
[2016-04-26] MEDS: METOPROLOL TARTRATE 25 MG TAB PO SCH ×2 (08:35→20:11)
[2016-04-26] MEDS: SODIUM CHLORIDE 0.9% FLUSH 5 ML FLUSH IVF SCH ×2 (08:36→20:10)
--- NOTE | 2016-04-26 11:53 | PD.CAR.PN ---
CVT Progress Note CVT: POD #: 3 Subjective/Hospital Course: STS DATA DISCUSSED WITH PT RISK SCORES About the STS Risk Calculator Procedure: CAB Only Risk of Mortality: 2.048% Morbidity or Mortality: 17.135% Long Length of Stay: 8.165% Short Length of Stay: 29.355% Permanent Stroke: 1.518% Prolonged Ventilation: 11.612% DSW Infection: 0.415% Renal Failure: 3.878% Reoperation: 6.446% 04/25/16 s/p OPCAB x 2 doing well, no complaints 04/26/16 c/o being tired today. No BM Objective: Vital Signs Date Time Temp Pulse Resp B/P Pulse Ox O2 Delivery O2 Flow Rate FiO2 04/26/16 11:00 76 04/26/16 11:00 98.2 77 18 109/53 98 04/26/16 10:00 80 04/26/16 09:00 92 04/26/16 08:00 78 04/26/16 07:00 68 04/26/16 07:00 95 Room Air 04/26/16 07:00 100.5 80 18 107/55 95 04/26/16 06:00 69 04/26/16 05:00 70 04/26/16 04:00 71 04/26/16 03:00 98.2 72 16 102/64 96 04/26/16 03:00 75 04/26/16 02:00 77 04/26/16 01:00 76 04/26/16 00:00 79 04/25/16 23:00 79 04/25/16 23:00 97.3 79 17 103/60 94 04/25/16 22:00 87 04/25/16 21:00 95 04/25/16 20:00 92 04/25/16 19:31 98 04/25/16 19:00 93 Room Air 04/25/16 19:00 99.0 93 24 116/59 93 04/25/16 19:00 87 04/25/16 18:00 90 04/25/16 17:00 76 04/25/16 16:00 82 04/25/16 15:00 89 04/25/16 15:00 100.4 94 18 116/54 95 04/25/16 14:00 98 04/25/16 13:03 87 04/25/16 12:00 81 Result Diagram: 04/25/16 0313 04/25/16 0320 Cardiovascular: RRR Telemetry: NSR Pulmonary: CTA GI/: NABS, NT Incision: dry and intact Plan: Stim BM Encourage ambulation D/C tomorrow Candie Nieves MD Apr 26, 2016 11:53
[2016-04-26] MEDS: clonazePAM 1 MG TAB PO PRN (20:10)
[2016-04-26] MEDS: SENNOSIDES 8.6 MG TAB PO SCH (20:11)
[2016-04-27] VITALS (10 sets, daily range): BP systolic 103–108; BP diastolic 61–63; PULSE 57–72; RESP 15–16; TEMP 96.7–98.4; O2SAT 95–96
[2016-04-27] MEDS: PANTOPRAZOLE SOD 40 MG DELAYED RELEASE TAB PO SCH (06:28)
[2016-04-27] MEDS: INSULIN ASPART SUPPLEMENTAL SCALE SQ SCH (06:34)
[2016-04-27] MEDS ORDERED: PATIENT OWN MEDICATION PO SCH (09:00)
[2016-04-27] MEDS: MULTIVITAMINS/MINERALS THERAPEUTIC TAB PO SCH (09:19)
[2016-04-27] MEDS: DOCUSATE SODIUM 100 MG CAP PO SCH (09:19)
[2016-04-27] MEDS: METOPROLOL TARTRATE 25 MG TAB PO SCH (09:19)
[2016-04-27] MEDS: ASPIRIN 81 MG CHEW TAB PO SCH (09:19)
[2016-04-27] MEDS: POLYETHYLENE GLYCOL 17 GM PKG PO SCH (09:25)
[2016-04-27] MEDS: MAGNESIUM HYDROXIDE SUSP 30 ML CUP PO SCH (09:25)
[2016-04-27] MEDS ORDERED: DOCU1CAP39 PO (09:38)
[2016-04-27] MEDS ORDERED: THERM PO (09:38)
[2016-04-27] MEDS ORDERED: METO25TA3 PO (09:38)
[2016-04-27] MEDS ORDERED: Aspirin Chew PO (09:38)
--- NOTE | 2016-04-27 09:42 | HHI.FF ---
Face to Face Verification Diagnosis: (1) Afib (2) Coronary artery disease (3) Hyperlipemia (4) Hypertension (5) Obstructive sleep apnea (6) S/P CABG x 2 Physical Therapy Order: Evaluate and Treat Home Health Nursing Order: Signs/symptoms of disease process Wound care and dressing changes Nursing assessment with vital signs Instructions: Heart and Vascular Surgery patients *Special attention to sternal dressing Mandatory frequency Assess and evaluation, 4 days in a row The next week 3X week 2 times a week for 4 weeks 1 time a week for 5 weeks Schedule Heart and Vascular patients for full 60 day certification period Initial visit Review Open Heart Surgery Discharge Instructions (Sternal precautions, Activity, Elastic hose, Incision care, Driving, Incentive spirometry, Smoking, [place], Work and other) Need Betadine to paint incision Medication reconciliation Importance of follow up care/ check on appointments Make calendar record temperature daily When to call [facility] nurse, review instructions, phone list Incentive Spirometry, demonstration Visit 1- Begin discharge instruction for patient family and/ or caregiver using teach back method- Signs and symptoms of infection Disease characteristics Medicines and side effects Foods and nutrition/ appetite Infection control/ hand washing/ hygiene Visit 2- Continue teaching Discharge instructions- include additional information on smoking cessation , sternal dressing (sternal vac) Visit 3- Continue teaching- Cough and deep breathing, incision monitoring. Choose my plate Visit 4- Continue teaching- Discuss limitations Discuss how they are feeling Discuss progress toward goals Remaining visits- continue teaching and monitoring Incentive spirometry Q1 hr x 10, while awake, also use acapella device hourly whole awake Sternal Breast Bone Precautions: NO pushing or pulling, ( pt must use sternal pillow to support chest with all activities and with coughing ( takes up to 3 months breast bone to heal ) Daily incision care: ok to shower daily, no tub bath. Wash all incisions with liquid dial soap, clean wash cloth to each site, rinse and pat dry. Observe for any signs of infection, such as drainage which is dark yellow, ann, green or foul smelling. Immediately report to the surgeon any drainage from the chest incision, or legs, and for any abnormal drainage from the chest tube sites. Notify surgeon if any temp >101.5 degrees F. When specialty dressing removed/ or if you do not have one, continue to shower daily as above, then rinse and pat incision dry and paint with betadine daily x 5 days. Allow steri strips to fall off if you have any. Avoid lotions, creams, salves, oils, etc. for the first month F/U appointment: as per MS instructions: PCP in 2 weeks, CV surgeon 2 weeks, Neck Skewer 3-4 weeks For any questions regarding incisions/ dressing / meds / post op care or above Symptoms, Wednesday 8am-5pm Heart & Vascular Surgery Office ( Dr. Georges & Dr. Nieves), After Hours / Nights (5pm -8am) Weekends and Holidays Please call [facility] Card[facility] Unit ([facility]) Charge Nurse I have seen patient SethVania Garnica on 04/27/16. My clinical findings support the need for the requested home health care services because: Deconditioned w/ increased weakness I certify that my clinical findings support that this patient is homebound because: Post-op weakness Florecita Morris Apr 27, 2016 09:42
[2016-04-27] MEDS ORDERED: FEXO15TA PO (09:47)
[2016-04-27] MEDS ORDERED: GETGO ROLLING W1 MI1 (09:48)
--- NOTE | 2016-04-27 10:27 | HHI.DS ---
Discharge Summary Admission Date Apr 22, 2016 at 10:23 Discharge Date: Apr 27, 2016 Admitting Diagnosis chest pain , CAD (1) Coronary artery disease Diagnosis: Principal (2) Hyperlipemia Diagnosis: Principal (3) Hypertension Diagnosis: Principal (4) Obstructive sleep apnea Diagnosis: Principal (5) Afib Diagnosis: Principal (6) S/P CABG x 2 Diagnosis: Secondary Procedures 1. Urgent Off-pump Coronary Artery Bypass Grafting x 2 with left internal mammary artery (VEGA) to left anterior descending (LAD), reverse saphenous vein graft to the OM1 2. Right Leg Endoscopic Vein Casa 3. Left Atrial Appendage Excision 4. Intraoperative Vein Mapping. 04/23/16 Brief History 75 / male hx of CAD recent nuclear stress test . small to moderate sized defect involving the mid to basilar lateral wall mild ischemia , EF 50-55%. + recent chest pressure , underwent cardia cath by Dr Rosales found to have multivessel disease PMH : CAD, P afib, obesty, HTN, HLP, LORI CPAP machine GERD CBC/BMP: 04/25/16 0313 04/25/16 0320 Significant Findings Laboratory Tests Test 04/25/16 04/25/16 03:13 03:20 White Blood Count 11.1 TH/MM3 (4.0-11.0) Red Blood Count 3.04 MIL/MM3 (4.50-5.90) Hemoglobin 9.7 GM/DL (13.0-17.0) Hematocrit 27.7 % (39.0-51.0) Platelet Count 141 TH/MM3 (150-450) Neutrophils (%) (Auto) 76.0 % (16.0-70.0) Monocytes (%) (Auto) 11.7 % (0.0-8.0) Neutrophils # (Auto) 8.4 TH/MM3 (1.8-7.7) Monocytes # (Auto) 1.3 TH/MM3 (0-0.9) Blood Urea Nitrogen 19 MG/DL (7-18) Estimat Glomerular Filtration 63 ML/MIN (>89) Rate Random Glucose 114 MG/DL (74-106) Calcium Level 8.2 MG/DL (8.5-10.1) Imaging Last Impressions Chest X-Ray 04/24/16 0500 Signed Impressions: Service Date/Time: Sunday, April 24, 2016 03:14 - CONCLUSION: 1. No significant change left base consolidation and small effusion. 2. Endotracheal tube and nasogastric tube out. Mediastinal drain, left chest tube and right internal jugular central venous catheter are unchanged. 3. No pneumothorax seen. Carlos Abbott MD Lower Extremity Ultrasound 04/22/16 0000 Signed Impressions: Service Date/Time: Friday, April 22, 2016 10:38 - CONCLUSION: Venous mapping as described above. Phill Dunne MD FACR Carotid Artery Ultrasound 04/22/16 0000 Signed Impressions: Service Date/Time: Friday, April 22, 2016 10:03 - CONCLUSION: 1. No significant stenosis within the internal carotid arteries. 2. 50-69%% stenosis of the left proximal common carotid artery. Gus Mcgee MD PE at Discharge GENERAL: SKIN: Warm and dry./ sternal incision intact and well approximated, mild erythema mid portion of incision, no fluctuance and no drainage leg incision intact and dry HEAD: Normocephalic. EYES: No scleral icterus. No injection or drainage. NECK: Supple, trachea midline. No JVD or lymphadenopathy. CARDIOVASCULAR: Regular rate and rhythm without murmurs, gallops, or rubs. RESPIRATORY: Breath sounds equal bilaterally. No accessory muscle use. GASTROINTESTINAL: Abdomen soft, non-tender, nondistended. MUSCULOSKELETAL: No cyanosis, or edema. BACK: Nontender without obvious deformity. No CVA tenderness. Hospital Course 1. Urgent Off-pump Coronary Artery Bypass Grafting x 2 with left internal mammary artery (VEGA) to left anterior descending (LAD), reverse saphenous vein graft to the OM1 2. Right Leg Endoscopic Vein Casa 3. Left Atrial Appendage Excision 4. Intraoperative Vein Mapping. 04/24 transferred to stepdown unit pain controlled, aggressive pulm toileting 04/25/16 s/p OPCAB x 2 doing well, no complaints 04/26/16 c/o being tired today. No BM 04/27 stable for dc , prevena dressing removed, on room air, remains in NSR Pt Condition on Discharge: Good Discharge Disposition: Disch w/ Home Health Serv Discharge Instructions DIET: Follow Instructions for: Heart Healthy Diet Activities you can perform: Full Weight Bearing, Shower Only-No Bath Activities to avoid: Lifting/Bending, Strenuous Activity, Driving Additional Activity Instructio: no lifting > 8 lbs or gallon of milk Follow up Referrals: Cardiology with Christian Rosales MD PCP Follow-up with Rohit Avilez MD Surgical with Geeta Georges MD New Medications: Fexofenadine (Zoë Allergy) 180 Mg Tab 180 MG PO DAILY Allergy Management #30 Ref 2 TAB Walker Rolling/GetGo (Walker Rolling/GetGo) 1 Mis Mis 1 EA .ROUTE DIRECTED #1 EA Docusate Sodium (Dok) 100 Mg Cap 100 MG PO Q12HR Constipation #60 Ref 0 CAP Metoprolol Tartrate (Metoprolol Tartrate) 25 Mg Tab 12.5 MG PO BID Blood Pressure Management #60 Ref 2 TAB Multiple Vitamins W/ Minerals (Thera M Plus) 1 Tab 1 TAB PO DAILY multivitamin #30 TAB ([Aspirin Chew]) 81 MG CHEW 81 MG PO DAILY Blood Clot Prevention #100 Ref 2 TAB.CHEW Continued Medications: Apixaban (Eliquis) 5 Mg Tab 5 MG PO BID Blood Clot Prevention Ref 0 TAB Clonazepam (Clonazepam) 1 Mg Tab 2.5 MG PO HS PRN SLEEP Rosuvastatin (Rosuvastatin) 5 Mg Tab 5 MG PO DAILY Cholesterol Management #30 Ref 0 TAB Discontinued Medications: Diltiazem ER 24 HR (Diltiazem ER 24 HR) 240 Mg Caper 120 MG PO DAILY Ref 0 CAP Fexofenadine-Pseudoephedrine ER 12 HR (Zoë-D 12 Hour Allergy) 60-120 Mg Derik 1 TAB PO DAILY Allergy Management Ref 0 TAB Isosorbide Mononitrate ER (Isosorbide Mononitrate ER) 30 Mg Derik 30 MG PO DAILY Prevent Chest Pain #30 Ref 0 TAB Nitroglycerin SL (Nitrostat SL) 0.4 Mg Subl 0.4 MG SL DIRECTED 1 tablet under the tongue as needed for chest pain. Repeat every 5 minutes for a total of 3 DOSES or call 911 if NO relief. PRN CHEST PAIN Ref 0 TAB.SL Florecita Morris Apr 27, 2016 10:27
[2016-04-27] MEDS: SODIUM CHLORIDE 0.9% FLUSH 5 ML FLUSH IVF SCH (11:25)
--- NOTE | 2016-06-30 10:08 | RSPPFT ---
DATE OF PROCEDURE: 04/22/16 COMMENTS: Spirometry shows FEV1 at 3.3, FVC at 4.0 indicating normal spirometry. There is no evidence of airways obstruction. IMPRESSION: 1. Normal spirometry. 2. No reversibility noted.
== END 2016-04-27 11:50 | disposition home health service (06) | DRG 234 ==
LOC: HDOC 05:16 → HDIC 05:23 → HDOC 10:20 → HCPC 10:23 → HCIS 04-23 09:10 → HCVR 04-23 13:42 → HCPC 04-24 10:25
PROVIDERS: ADMIT Thoracic Surgery (Cardiothoracic Vascular Surgery); ATTEND Thoracic Surgery (Cardiothoracic Vascular Surgery)
PROC: 4A023N7 Measurement of Cardiac Sampling and Pressure, Left Heart, Percutaneous Approach (ICD-10-PCS; 2016-04-22)
PROC: B2111ZZ Fluoroscopy of Multiple Coronary Arteries using Low Osmolar Contrast (ICD-10-PCS; 2016-04-22)
PROC: B2151ZZ Fluoroscopy of Left Heart using Low Osmolar Contrast (ICD-10-PCS; 2016-04-22)
PROC: 021009W Bypass Coronary Artery, One Artery from Aorta with Autologous Venous Tissue, Open Approach (ICD-10-PCS; 2016-04-23)
PROC: 02B70ZK Excision of Left Atrial Appendage, Open Approach (ICD-10-PCS; 2016-04-23)
PROC: 02100Z9 Bypass Coronary Artery, One Artery from Left Internal Mammary, Open Approach (ICD-10-PCS; principal; 2016-04-23 09:04)
DX: I25.110 Atherosclerotic heart disease of native coronary artery with unstable angina pectoris (principal); I48.0 Paroxysmal atrial fibrillation; I10 Essential (primary) hypertension; E78.5 Hyperlipidemia, unspecified; E66.9 Obesity, unspecified; G47.33 Obstructive sleep apnea (adult) (pediatric); M19.90 Unspecified osteoarthritis, unspecified site; K21.9 Gastro-esophageal reflux disease without esophagitis; Z96.641 Presence of right artificial hip joint; Z68.30 Body mass index [BMI] 30.0-30.9, adult; Z79.01 Long term (current) use of anticoagulants; Z87.442 Personal history of urinary calculi; Z86.73 Personal history of transient ischemic attack (TIA), and cerebral infarction without residual deficits; Z98.1 Arthrodesis status; Z87.891 Personal history of nicotine dependence
CPT/HCPCS: 36430; 71010; 71020; 76937; 80048; 81001; 82948; 83036; 83735; 85014; 85025; 85027; 85576; 85610; 85730; 86850; 86900; 86901; 86920; 87641; 88305; 93005; 93458; 93880; 93970; 93998; 94002; 94010; 94150; 94640; 94664; 94667; C1768; C1769; C1893; C9399; J0131; J0690; J1644; J1815; J1885; J2250; J2370; J2440; J2720; J3010; J3370; J3475; J3480; J7120; P9016; P9045; Q9967